=== PATIENT | female | born 1980 | race Caucasian/White ===

== ENCOUNTER 2016-10-15 16:40 | Emergency (ER) | payer MEDICAID, OTHER, SELFPAY ==
[~2016-10-15] VITALS: Ht 157.5 cm; Wt 77.3 kg
[2016-10-15 18:27] LABS: MEAN CORPUSCULAR HEMOGLOBIN 30.4 pg (27.0-33.0); MEAN CORPUSCULAR HGB CONC 34.3 g/dl (32.0-36.5); MEAN CORPUSCULAR VOLUME 88.5 fl (80.0-96.0); RED CELL DISTRIBUTION WIDTH 12.4 % (11.5-14.5); WHITE BLOOD COUNT 13.6 K/mm3 (4.0-10.0)
[2016-10-15 18:43] LABS: CONTROL LINE HCG INT CTR LINE PRESENT
[2016-10-15 18:49] LABS: METHADONE URINE NEGATIVE (NEGATIVE)
[2016-10-15 18:58] LABS: ALBUMIN 3.9 GM/DL (3.2-5.2); ALBUMIN/GLOBULIN RATIO 1.08 (1.00-1.93); ALKALINE PHOSPHATASE 73 U/L (45-117); ALT/SGPT 20 U/L (12-78); ANION GAP 12 MEQ/L (8-16); AST/SGOT 10 U/L (15-37); BILIRUBIN,DIRECT < 0.1 MG/DL (0.0-0.2); BILIRUBIN,TOTAL 0.2 MG/DL (0.2-1.0); BLOOD UREA NITROGEN 19 MG/DL (7-18); CALCIUM LEVEL 8.8 MG/DL (8.5-10.1); CARBON DIOXIDE LEVEL 24 MEQ/L (21-32); CHLORIDE LEVEL 108 MEQ/L (98-107); CREATININE FOR GFR 0.76 MG/DL (0.55-1.02); GLOMERULAR FILTRATION RATE > 60.0 (>60); GLUCOSE, FASTING 97 MG/DL (70-105); POTASSIUM SERUM 3.8 MEQ/L (3.5-5.1); SODIUM LEVEL 144 MEQ/L (136-145); TOTAL PROTEIN 7.5 GM/DL (6.4-8.2)
[2016-10-15 20:47] VITALS: BP 181/87
== END 2016-10-15 20:47 | disposition home or self-care (01) ==
LOC: M ED 16:40
DX: F43.0 Acute stress reaction (principal); Z60.9 Problem related to social environment, unspecified; Z88.2 Allergy status to sulfonamides

== ENCOUNTER → 2018-06-22 | Outpatient (REF) | payer OTHER ==
[2018-06-22 19:13] LABS: BASO % 0.3 % (0.0-1.0); EOS # 0.3 10^3/uL (0.0-0.50); EOS % 2.5 % (0.0-3.0); HEMATOCRIT 43.6 % (36.0-47.0); HEMOGLOBIN 14.1 g/dl (12.0-15.5); LYMPH # 2.3 10^3/uL (1.5-4.5); LYMPH % 19.4 % (24.0-44.0); MEAN CORPUSCULAR HEMOGLOBIN 29.3 pg (27.0-33.0); MEAN CORPUSCULAR HGB CONC 32.3 g/dl (32.0-36.5); MEAN CORPUSCULAR VOLUME 90.6 fl (80.0-96.0); MONO # 0.9 10^3/uL (0.0-0.8); MONO % 7.3 % (0.0-5.0); NEUTROPHILS # 8.3 10^3/uL (1.8-7.7); PLATELET COUNT, AUTOMATED 372 10^3/uL (150-450); RED BLOOD COUNT 4.81 10^6/uL (4.00-5.40); WHITE BLOOD COUNT 11.8 10^3/uL (4.0-10.0)
[2018-06-22 20:06] LABS: ALBUMIN 3.6 GM/DL (3.2-5.2); ALT/SGPT 26 U/L (12-78); BILIRUBIN,TOTAL 0.1 MG/DL (0.2-1.0); BLOOD UREA NITROGEN 16 MG/DL (7-18); CALCIUM LEVEL 9.6 MG/DL (8.5-10.1); CARBON DIOXIDE LEVEL 27 MEQ/L (21-32); CHLORIDE LEVEL 106 MEQ/L (98-107); CREATININE FOR GFR 0.76 MG/DL (0.55-1.30); FREE T4 0.98 NG/DL (0.76-1.46); GLOMERULAR FILTRATION RATE > 60.0 (>60); GLUCOSE, FASTING 69 MG/DL (70-100); POTASSIUM SERUM 4.3 MEQ/L (3.5-5.1); SODIUM LEVEL 140 MEQ/L (136-145); TOTAL PROTEIN 7.6 GM/DL (6.4-8.2)
== END ==
LOC: M SFHCPLAZ 15:02
PROVIDERS: ATTEND Physician Assistant Medical
DX: Z02.1 Encounter for pre-employment examination (principal); E66.09 Other obesity due to excess calories

== ENCOUNTER → 2018-07-22 | Outpatient (REF) | payer OTHER ==
[2018-07-22 12:23] LABS: BASO # 0.1 10^3/uL (0.0-0.2); BASO % 0.6 % (0.0-1.0); EOS # 0.2 10^3/uL (0.0-0.50); EOS % 2.2 % (0.0-3.0); HEMATOCRIT 41.5 % (36.0-47.0); HEMOGLOBIN 13.4 g/dl (12.0-15.5); LYMPH # 1.9 10^3/uL (1.5-4.5); LYMPH % 19.1 % (24.0-44.0); MEAN CORPUSCULAR HEMOGLOBIN 28.8 pg (27.0-33.0); MEAN CORPUSCULAR HGB CONC 32.3 g/dl (32.0-36.5); MEAN CORPUSCULAR VOLUME 89.2 fl (80.0-96.0); MONO # 0.6 10^3/uL (0.0-0.8); MONO % 5.9 % (0.0-5.0); NEUTROPHILS % 71.8 % (36.0-66.0); PLATELET COUNT, AUTOMATED 359 10^3/uL (150-450); RED BLOOD COUNT 4.65 10^6/uL (4.00-5.40); WHITE BLOOD COUNT 9.7 10^3/uL (4.0-10.0)
[2018-07-22 12:35] LABS: CHOLESTEROL RISK RATIO 3.7 (<5)
== END ==
LOC: M SFHCPLAZ 09:10
PROVIDERS: ATTEND Physician Assistant Medical
DX: Z13.220 Encounter for screening for lipoid disorders (principal); D72.829 Elevated white blood cell count, unspecified

== ENCOUNTER → 2018-07-28 | Outpatient (REF) | payer OTHER ==
[2018-07-28 16:06] LABS: BASO % 0.2 % (0.0-1.0); EOS # 0.3 10^3/uL (0.0-0.50); EOS % 2.1 % (0.0-3.0); HEMATOCRIT 41.5 % (36.0-47.0); HEMOGLOBIN 13.7 g/dl (12.0-15.5); LYMPH # 1.5 10^3/uL (1.5-4.5); MEAN CORPUSCULAR HEMOGLOBIN 29.1 pg (27.0-33.0); MEAN CORPUSCULAR VOLUME 88.1 fl (80.0-96.0); MONO # 0.6 10^3/uL (0.0-0.8); MONO % 3.6 % (0.0-5.0); NEUTROPHILS # 13.9 10^3/uL (1.8-7.7); NEUTROPHILS % 84.6 % (36.0-66.0); PLATELET COUNT, AUTOMATED 326 10^3/uL (150-450); RED BLOOD COUNT 4.71 10^6/uL (4.00-5.40); WHITE BLOOD COUNT 16.4 10^3/uL (4.0-10.0)
== END ==
LOC: M SFHCPLAZ 14:21
PROVIDERS: ATTEND Physician Assistant Medical
DX: D72.829 Elevated white blood cell count, unspecified (principal)

== ENCOUNTER → 2019-11-25 | Outpatient (CLI) | payer BC ==
--- NOTE | 2019-12-01 10:01 | REP ---
BILATERAL SCREENING MAMMOGRAM WITH 3D TOMOSYNTHESIS: BASELINE STUDY HISTORY: Family history if breast cancer in mother under age 50, two maternal aunt, and a paternal aunt. Lifetime risk of breast cancer is 28.4% based on the Tyrer-Cuzick model. FINDINGS: There is moderate heterogeneous fibroglandular tissue bilaterally. There is a nodule at the 6 o'clock position of the left breast, which is slightly lobulated, but smoothly marginated. It measures about 1.3 cm in maximum diameter. No other definite mass is seen bilaterally. I see no suspicious clusters of microcalcifications. Normal appearing lymph nodes are seen in both axillary regions. Volpara breast density is B. IMPRESSION: ACR 0 incomplete. There is a 1.3 cm nodule at the 6 o'clock position of the left breast. Recommend spot compression views and ultrasound to further evaluate. In addition, given the elevated lifetime risk of breast cancer 28.4%, supplemental screening MRI of the breast is recommended in six months. This mammogram was interpreted with the aid of an FDA approved computer-aided detection system. The patient states her last clinical breast exam was 11/2019. Patient letter: 0. MTDD
== END ==
LOC: M WHC 13:54
PROVIDERS: ATTEND Obstetrics & Gynecology
DX: R92.2 Inconclusive mammogram (principal); N63.25 Unspecified lump in the left breast, overlapping quadrants; Z80.3 Family history of malignant neoplasm of breast

== ENCOUNTER → 2019-12-05 | Outpatient (CLI) | payer BC ==
--- NOTE | 2019-12-12 09:39 | REP ---
PELVIC ULTRASOUND HISTORY: Menorrhagia and dysmenorrhea. TECHNIQUE: Real-time sonographic evaluation of the pelvis is performed. Transabdominal and endovaginal technique is utilized. The urinary bladder measures 3.7 x 4.0 x 2.5 cm. Uterus measures 10.6 x 5.7 x 7.7 cm. Endometrial thickness is 12 mm. There is no endometrial fluid collection. Uterus demonstrates several fibroids scattered throughout the myometrium. There is a left fibroid measuring 1.4 x 0.9 x 0.9 cm, two anterior fibroids measuring 1.5 x 1.4 x 0.8 cm and 1.9 x 1.2 x 1.6 cm. There is a posterior fibroid measuring 2.2 x 1.1 x 1.9 cm. Right ovary measures 2.9 x 1.8 x 1.7 cm and the left ovary 3.3 x 3.0 x 2.0 cm. There is a dominant follicle with internal echoes in the left ovary 2 cm in maximum diameter. There is no evidence of ovarian torsion. Blood flow is seen in each ovary with Duplex Doppler evaluation. Otherwise, no adnexal mass or free fluid is seen. IMPRESSION: Several fibroids in the uterus as discussed in detail above. This study is otherwise unremarkable. MTDD
--- NOTE | 2019-12-12 09:40 | REP ---
LEFT BREAST DIAGNOSTIC MAMMOGRAM WITH LEFT BREAST ULTRASOUND COMPARISON: Baseline mammogram 11/25/2019. Spot compression views of the left breast are performed in multiple projections and correlated with the recent mammogram of 11/25/2019. These confirm the presence of a smoothly marginated nodule inferiorly in the left breast in the region of 6 o'clock. Maximum diameter is 1.5 cm. Real-time sonographic evaluation of the 6 o'clock region in the left breast is performed. There is an oval hypoechoic structure, which appears cystic with a thin wall and increased through transmission. There are diffuse low level echoes internally in a relatively homogeneous fashion. I suspect this represents a mildly complex cyst. However, since it is not completely anechoic, I would recommend ultrasound-guided sampling. This measures 1.2 x 1.4 x 0.6 cm. There is no internal blood flow with Doppler evaluation. IMPRESSION: ACR 4 suspicious. Smoothly marginated nodule confirmed in the region of 6 o'clock left breast. This corresponds to a hypoechoic by ultrasound with diffuse low level echoes. I suspect this represents a mildly complex cyst. I would recommend ultrasound-guided sampling. Patient letter: 4. MTDD
== END ==
LOC: M WHC 13:51
PROVIDERS: ATTEND Obstetrics & Gynecology
DX: N92.6 Irregular menstruation, unspecified (principal); R92.2 Inconclusive mammogram; D25.9 Leiomyoma of uterus, unspecified; N63.20 Unspecified lump in the left breast, unspecified quadrant
CPT/HCPCS: 76642; 76830; 76856; 77065; G0279

== ENCOUNTER → 2020-02-15 | Outpatient (CLI) | payer BC ==
[2020-02-15 13:14] VITALS: BP 143/82
--- NOTE | 2020-02-15 13:24 | REP ---
INDICATION: R92.8 ABN LT BREAST MAMMO,ASIRATION W/POSS BX,POST BX. Status post ultrasound-guided cyst aspiration left breast. No clip placement. COMPARISON: Comparison mammography November 25, 2019 and December 05, 2019. TECHNIQUE: Cc and true mediolateral views left breast were obtained. This mammogram was interpreted with the aid of an FDA-approved computer-aided detection system. FINDINGS: Today's views of the left breast obtained post cyst aspiration demonstrate that the nodular opacity in the inferior medial quadrant of the left breast on recent prior mammography is not apparent. This is felt to confirm that the nodular opacity corresponds to the aspirated cyst. There is no evidence of hematoma. Left breast parenchyma is otherwise unchanged and unremarkable. IMPRESSION: BIRADS/ACR category 2 benign left breast mammographic .. This patient's Tyrer-Cuzick lifetime breast cancer risk assessment score is 28.4%. RECOMMENDATION: Recommend screening breast MRI study bilaterally in 6 months time.. The patient letter being requested is M2 dense. <Electronically signed by Julio Cesar Herron > 02/15/20 [id number]
--- NOTE | 2020-02-16 08:17 | REP ---
INDICATION: R92.8 ABN LT MAMMO,LT ASPIRATION W/POSS BIOPSY. COMPARISON: Comparison sonography December 05, 2019.. TECHNIQUE: Sonographic guidance. FINDINGS: Ultrasound guidance is provided to Dr. Berger who performed a ultrasound-guided left breast cyst aspiration. IMPRESSION: Sonographic guidance. <Electronically signed by Julio Cesar Herron > 02/16/20 [id number]
--- NOTE | 2020-02-16 16:28 | ROOPDOC ---
[facility] Report Of Operation Report of Operation Date of the procedure:02/15/20 Diagnosis: Left breast cystic lesion Procedure:Ultrasound guided aspiration of Left breast cystic lesion Proceduralist: aFustino Ramey D.O. EBL: minimal Procedure details: Informed consent was obtained. The most common risk and possible complications including bleeding, hematoma, bruising, infection, injury to surrounding structures were explained to the patient and she expressed understanding. Patient was taken to the procedure room and placed on the bed in the supine position. Appropriate time out was done stating patients name, date of , and the procedure to be performed. The left breast was prepped and draped in the usual fashion. The ultrasound was used to confirm the location of the cystic lesion corresponding to lesion seen on mammography in the left breast at 8:00 1 centimeter from the nipple. Plain Lidocaine 1% and 8.4% sodium bicarbonate 10:1 mix was used to numb the skin, and tissues along the anticipated aspiration tract. 18 G needle was used to aspirate cystic lesion under direct ultrasound guidance. Aspirated fluid was very viscous and was sent for cytology. The cyst completely collapsed and images were captured. Manual pressure over the cyst aspiration site and tract was held. No bleeding was noted upon removal of the pressure. Post procedure mammogram was obtained and showed resolution of mammographic abnormality post cystic lesion aspiration. Patient tolerated procedure well. Discharge instructions were discussed with the patient and she expressed understanding. FAUSTINO RAMEY DO Feb 16, 2020 16:28
== END ==
LOC: M WHCPRO 10:07
PROVIDERS: ATTEND Surgery
DX: R92.8 Other abnormal and inconclusive findings on diagnostic imaging of breast (principal); N64.89 Other specified disorders of breast

== ENCOUNTER → 2020-06-07 | Outpatient (CLI) | payer BC ==
[~2020-06-07] MED LIST: PROHANCE 279.3MG/ML 15ML VIAL As Ordered ONE; PROHANCE 279.3MG/ML 5ML VIAL As Ordered ONE
--- NOTE | 2020-06-07 13:29 | REP ---
INDICATION: AT HIGH RISK FOR BREAST CANCER. COMPARISON: Mammogram 11/25/2019. TECHNIQUE: Three Bridget MRI imaging was performed with a dedicated breast coil. Axial, coronal, and sagittal T1 and T2 weighted scans were obtained with and without fat saturation in the usual fashion. The study includes dynamically acquired post gadolinium-enhanced imaging with image subtraction. Maximum intensity projection and multi planar reformation imaging is included as well. This study is interpreted with the aid of [employer], an FDA approved computer aided detection (CAD) software program, on a dedicated breast MRI workstation. The gadolinium enhancement dose is 18 mL of intravenous ProHance. FINDINGS: There is moderate fibroglandular tissue bilaterally. There are several tiny subcentimeter cysts bilaterally. There is no significant lymphadenopathy in the axillary regions bilaterally. There is moderate background parenchymal enhancement bilaterally. There is no suspicious enhancing mass or morphologic abnormality. IMPRESSION: BI-RADS category 2, benign bilateral breast MRI. Scattered tiny cysts and nonenlarged axillary lymph nodes. No suspicious enhancing mass or morphologic abnormality. Yearly supplemental screening MRI of the breasts is recommended for patients with an elevated lifetime risk of breast cancer of 20% or greater, in addition to annual screening mammography, staggered every 6 months. <Electronically signed by Jeferson Sebastian > 06/07/20 [id number]
== END ==
LOC: M RAD 10:51
PROVIDERS: ATTEND Surgery
DX: Z91.89 Other specified personal risk factors, not elsewhere classified (principal); N60.11 Diffuse cystic mastopathy of right breast; N60.12 Diffuse cystic mastopathy of left breast
CPT/HCPCS: A9576; C8908

== ENCOUNTER → 2021-08-26 | Outpatient (REF) | payer OTHER, BC | LOC: M LAB REF 13:34 | PROVIDERS: ATTEND Ophthalmology | DX: D23.111 Other benign neoplasm of skin of right upper eyelid, including canthus (principal) ==

== ENCOUNTER → 2023-04-15 | Outpatient (REF) | payer BC | LOC: M LAB REF 12:26 | PROVIDERS: ATTEND Registered Nurse | DX: R35.0 Frequency of micturition (principal); R30.0 Dysuria ==

== ENCOUNTER → 2023-07-23 | Outpatient (REF) | payer BC ==
[2023-07-23 18:51] LABS: Trichomonas vaginalis (AMP) NOT DETECTED (NEGATIVE)
[2023-07-23 19:15] LABS: GC DNA AMPLIFICATION POSITIVE (NEGATIVE)
== END ==
LOC: M LAB REF 16:50
PROVIDERS: ATTEND Registered Nurse
DX: Z11.3 Encounter for screening for infections with a predominantly sexual mode of transmission (principal)

== ENCOUNTER → 2025-01-18 | Outpatient (CLI) | payer BC | LOC: M SLEEP 20:00 | PROVIDERS: ATTEND Physician Assistant | DX: G47.33 Obstructive sleep apnea (adult) (pediatric) (principal); R40.0 Somnolence ==